=== PATIENT | female | born 1985 | race Caucasian/White ===

== ENCOUNTER 2017-07-10 11:54 | Emergency (ER) | payer OTHER ==
[~2017-07-10] VITALS: Ht 154.9 cm; Wt 83.5 kg
[2017-07-10 12:00] VITALS: BP 151/75
--- NOTE | 2017-07-10 12:02 | NUR ---
TO ER BED 9
--- NOTE | 2017-07-10 12:05 | NUR ---
PT. CAME INTO ED W/ C/O PAIN IN HER MOUTH ON THE RIGHT SIDE POST ROOT CANAL X 3 DAYS AGO. PT. STATES " I GOT A ROOT CANAL DONE ON MONDAY AND THE PAIN HAS GOTTEN WORSE, I AM ONLY TAKING IBUPROFEN BUT IT IS NOT HELPING, I WENT TO GO SEE MY DENTIST THIS MORNING AND HE WAS NOT IN THE OFFICE BUT THEY TOLD ME TO GO TO THE E.R AND THEY GAVE ME AN ANTIBIOTIC PRESCRIPTION". PT. AAOX4. RR EVEN AND UNLABORED, SKIN DRY, WARM TO TOUCH. NO SOB, NO CHEST PAIN. NAUSEA SINCE SHE WOKE UP TODAY AND VOMITED ONCE AND DESCRIBED IT "YELLOW" , DENIES ANY BLOOD IN VOMIT. DENIES DIAHRRHEA. E.Marky BLANCO NOTIFIED. WILL CONTINUE TO MONITOR. SAFETY PRECAUTIONS IMPLEMENTED.
--- NOTE | 2017-07-10 12:43 | NUR ---
Patient being evaluated by physician at bedside.
[2017-07-10] MEDS ORDERED: KETOROLAC 30 MG/ML VIAL IM ONE (12:45)
[2017-07-10] MEDS ORDERED: CLINDAMYCIN 600 MG/4 ML VIAL IM ONE (12:45)
--- NOTE | 2017-07-10 13:02 | NUR ---
Patient discharged with v/s stable. Written and verbal after care instructions given and explained. Patient alert, oriented and verbalized understanding of instructions. Ambulatory with steady gait. All questions addressed prior to discharge. ID band removed. Patient advised to follow up with PMD. Rx of NAPROSYN AND TYLENOL WITH CODEINE given. Patient educated on indication of medication including possible reaction and side effects. Opportunity to ask questions provided and answered.
[2017-07-10 13:03] VITALS: BP 149/72
== END 2017-07-10 13:02 | disposition home or self-care (01) ==
LOC: MED 11:54
DX: K08.89 Other specified disorders of teeth and supporting structures (principal)
CPT/HCPCS: 81025; 96372; 99284; J1885; J3490